=== PATIENT | male | born 1990 | race Two or more races ===

== ENCOUNTER → 2021-02-06 | Emergency (ER) | payer OTHER ==
[~2021-02-06] VITALS: Ht 175.3 cm; Wt 74.8 kg
[~2021-02-06] MED LIST: CT SWABBABLE VALVE TRANS SET 1 EA INFUS.SET MC ONE; CYCL5TAB PO; IBUP-1957 PO; IOHEXOL-300 100 ML VIAL IV ONE; IV NS 0.9% 250 ML IV ONE; oxyCODONE/APAP (5/325 MG) 1 UDTAB TABLET ONE; oxyCODONE/APAP (5/325 MG) 1 UDTAB TABLET PO ONE
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
--- NOTE | 2021-02-06 10:16 | NUR ---
PT TAKEN TO CT
--- NOTE | 2021-02-06 10:40 | NUR ---
PT RETURNED FROM CT
--- NOTE | 2021-02-06 12:26 | NUR ---
IV removed. Catheter intact and site benign. Pressure and 4x4 applied to site. No bleeding noted.Patient discharged to home in stable condition. Written and verbal after care instructions given. Patient verbalizes understanding of instruction.
[2021-02-06 12:27] VITALS: BP 132/84
== END | disposition home or self-care (01) ==
LOC: ER 09:21
DX: M54.2 Cervicalgia (principal); M54.50 Low back pain, unspecified; R51.9 Headache, unspecified; V49.69XA Unspecified car occupant injured in collision with other motor vehicles in traffic accident, initial encounter; Y93.89 Activity, other specified; Y92.413 State road as the place of occurrence of the external cause; Y99.8 Other external cause status
CPT/HCPCS: 71045; 72125; 72128; 74177; 99285; J7050; Q9967